=== PATIENT | male | born 1950 | race Two or more races ===

== ENCOUNTER 2019-12-11 23:03 | Emergency (ER) | payer OTHER, MEDICAID ==
[~2019-12-11] VITALS: Ht 167.6 cm; Wt 79.4 kg
[~2019-12-11 23:03] MED LIST: DIOVAN160 MG ORAL; FELODIPINE ER5 MG PO; NORCO 5-325 TA1 EACH ORAL; PREDNISONE20 MG ORAL
[2019-12-11 23:15] VITALS: BP 134/78
--- NOTE | 2019-12-11 23:25 | Emergency Room Report ---
History of Present Illness General Chief Complaint: Chest Pain Source: Patient Present Illness HPI This is a 69-year-old male with a history of high blood pressure. He presents with complaint of chest pain and right arm pain. Onset for last 3 days. Pain in his chest is pressure-like. No radiation. Midsternal area. Achy in nature. He also now developed arm pain to his wrist and fingers. No exertional component. No diaphoresis. No shortness of breath. Nothing made it better. Nothing made it worse. According to his granddaughter, patient said that last year he had "pre" heart attack. He was told this when he was in [facility]. Allergies: Uncoded Allergies: PENICILLIN (Allergy, Unknown, 04/15/19) COVID-19 Screening Contact w/high risk pt: No Experienced COVID-19 symptoms?: No COVID-19 Testing performed [employer]: No Patient History Past Medical History: see triage record, old chart reviewed, HTN Past Surgical History: other Pertinent Family History: none Social History: Denies: smoking Immunizations: other Reviewed Nursing Documentation: PMH: Agreed; PSxH: Agreed Nursing Documentation-PMH Hx Cardiac Problems: Yes - "pre heart attack 2019" Hx Hypertension: Yes Review of Systems Eye: Denies: eye pain, blurred vision ENT: Denies: ear pain, nose congestion, throat swelling Respiratory: Denies: cough, shortness of breath Cardiovascular: Reports: chest pain; Denies: palpitations Gastrointestinal: Denies: abdominal pain, diarrhea, nausea, vomiting Musculoskeletal: Denies: back pain, joint pain Skin: Denies: rash Neurological: Denies: headache, numbness Endocrine: Denies: increased thirst, increased urine Hematologic/Lymphatic: Denies: easy bruising All Other Systems: negative except mentioned in HPI Physical Exam Vital Signs Date Time Temp Pulse Resp B/P (MAP) Pulse Ox O2 Delivery O2 Flow Rate FiO2 12/11/19 23:06 97.9 95 18 131/76 (94) 94 Room Air Vitals unremarkable Sp02 EP Interpretation: reviewed, normal General Appearance: well appearing, no apparent distress, alert Head: normocephalic, atraumatic Eyes: bilateral eye PERRL, bilateral eye EOMI ENT: hearing grossly normal, normal pharynx Neck: full range of motion, supple, no meningismus Respiratory: chest non-tender, lungs clear, normal breath sounds Cardiovascular #1: regular rate, rhythm, no murmur Gastrointestinal: normal bowel sounds, non tender, no mass, no organomegaly, no bruit, non-distended Musculoskeletal: back normal, normal range of motion, gait/station normal Psychiatric: mood/affect normal Medical Decision Making Diagnostic Impression: Primary Impression: Chest pain Qualified Codes: R07.9 - Chest pain, unspecified Additional Impression: CKD (chronic kidney disease) Qualified Codes: N18.9 - Chronic kidney disease, unspecified ER Course Patient presents with atypical chest pain. Is been constant for the last 3 days. There is no exertional component. Troponin is negative. EKG showed LVH with T wave inversion. No evidence of ST elevation MT, ACS, PE, dissection To name a few. Will discharge home. EKG Diagnostic Results Rate: normal Rhythm: NSR ST Segments: other - NSST changes ASA given to the pt in ED: Yes Rhythm Strip Diag. Results EP Interpretation: yes Rate: 86 Rhythm: NSR, no PVC's, no ectopy Chest X-Ray Diagnostic Results Chest X-Ray Diagnostic Results : Chest X-Ray Ordered: Yes # of Views/Limited/Complete: 1 View Indication: Chest Pain EP Interpretation: Yes Interpretation: no consolidation, no effusion, no pneumothorax, no acute cardiopulmonary disease Impression: No acute disease Electronically Signed by: Freedom Tran MD Last Vital Signs Date Time Temp Pulse Resp B/P (MAP) Pulse Ox O2 Delivery O2 Flow Rate FiO2 12/11/19 23:06 97.9 95 18 131/76 (94) 94 Room Air Status: improved Disposition: HOME, SELF-CARE Condition: Stable Scripts Acetaminophen With Codeine (T#3) (TYLENOL #3 TAB*) Y Tab 1 TAB ORAL Q8H PRN for For Pain, #20 TAB Prov: Freedom Tran MD 12/12/19 Patient Instructions: Nonspecific Chest Pain Additional Instructions: Follow-up with your doctor in 2-3 days. You may need a referral to see a registered radiologic technologist for stress test on your heart. Return if symptoms worsen. Freedom Tran MD Dec 11, 2019 23:25
[2019-12-11] MEDS ORDERED: Nitroglycerin Subl 0.4mg tab ORAL PRN (23:30)
[2019-12-11] MEDS ORDERED: Aspirin Baby 81mg ORAL ONE (23:30)
[2019-12-11 23:42] LABS: EOSINOPHILS % (AUTO) 1.8 % (0.0-3.0); HEMATOCRIT 45.7 % (42.0-52.0); HEMOGLOBIN 14.9 G/DL (14.2-18.0); LYMPHOCYTES % (AUTO) 25.4 % (20.0-45.0); MEAN CORPUSCULAR VOLUME 86 FL (80-99); MONOCYTES % (AUTO) 8.5 % (1.0-10.0); NEUTROPHILS % (AUTO) 63.3 % (45.0-75.0); PLATELET COUNT 389 K/UL (150-450); RED BLOOD COUNT 5.35 M/UL (4.70-6.10); RED CELL DISTRIBUTION WIDTH 14.5 % (11.6-14.8); WHITE BLOOD COUNT 15.1 K/UL (4.8-10.8)
[2019-12-11 23:53] LABS: CALCIUM 9.6 MG/DL (8.5-10.1)
[2019-12-11 23:58] LABS: BILIRUBIN,TOTAL 0.4 MG/DL (0.2-1.0)
[2019-12-12] MEDS ORDERED: ACETAMINOPHEN-1 EAC1 ORAL (00:44)
[2019-12-12 00:50] VITALS: BP 126/73
--- NOTE | 2019-12-12 11:21 | Diagnostic Imaging Report ---
Procedure: XRAY Chest 1v Reason for study: Chest pain. Comparison films: None. FINDINGS: A single one view chest is obtained. Vascularity is normal. The lung davis are clear bilaterally. Cardiac and mediastinal silhouette are within normal limits. CP angles are sharp. The bony thorax appear unremarkable. IMPRESSION: NO ACUTE CARDIOPULMONARY DISEASE.
--- NOTE | 2019-12-12 16:27 | Cardiology Report ---
APPROVED REPORT EKG Measurement Heart [id number] <Conclusion> Normal sinus rhythm T wave abnormality, consider inferior ischemia Abnormal ECG
== END 2019-12-12 00:50 | disposition home or self-care (01) ==
LOC: EMR 23:58
DX: R07.9 Chest pain, unspecified (principal); I12.9 Hypertensive chronic kidney disease with stage 1 through stage 4 chronic kidney disease, or unspecified chronic kidney disease; N18.9 Chronic kidney disease, unspecified; M79.601 Pain in right arm; Z88.0 Allergy status to penicillin
CPT/HCPCS: 36415; 71045; 80053; 84484; 85025; 93005; 99283; U0002